=== PATIENT | male | born 1960 | race Caucasian/White ===

== ENCOUNTER 2019-12-25 09:27 | Outpatient (CLI) | payer OTHER, SELFPAY ==
--- NOTE | 2019-12-25 09:46 | XR_ITS ---
WS: [id number] LUMBAR SPINE TECHNIQUE: 3 views of the lumbar spine CLINICAL INFORMATION: LOW BACK PAIN COMPARISON: None. FINDINGS: Five yen-ink-xarkemn lumbar vertebral bodies. Mild lumbar curve convex left. Mild disc space narrowin g L4-L5 and L5-S1. Chronic anterior wedging at T10, T11, and T12. Aortic calcification. Moderate face t arthropathy L4-L5 and L5-S1. Aortic calcification. XR/XR lumbar spine 2-3V* [id number] IMPRESSION: 1. Mild lumbar curve convex left. 2. Mild disc space narrowing L4-L5 and L5-S1. 3. Chronic anterior wedging at T10, T11, T12.
--- NOTE | 2019-12-25 09:46 | XR_ITS ---
WS: [id number] SHOULDER RIGHT TECHNIQUE: 3 views of the right shoulder CLINICAL INFORMATION: R SHOULDER PAIN S/P SURGERY COMPARISON: None. FINDINGS: Mild degenerative arthritis at the AC joint. Mild subacromial narrowing. Normal glenohumeral joint. N ormal scapula and distal clavicle. IMPRESSION: 1. 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 2. Mild rotator cuff arthropathy
== END 2019-12-25 09:28 | disposition home or self-care (01) ==
PROVIDERS: Visit Provider Dermatology
DX: M54.5 Low back pain (principal); M19.011 Primary osteoarthritis, right shoulder; M48.54XA Collapsed vertebra, not elsewhere classified, thoracic region, initial encounter for fracture; X58.XXXA Exposure to other specified factors, initial encounter
CPT/HCPCS: 72100; 73030

== ENCOUNTER 2022-03-27 03:51 | Emergency (ER) | payer MEDICARE, MEDICAID, SELFPAY ==
[2022-03-27 03:55] VITALS: BP 202/78; PULSE 52; RESP 18; TEMP 36.1; O2SAT 94; BMI 33.5
--- NOTE | 2022-03-27 04:01 | CTR_ITS ---
PROCEDURE INFORMATION: Exam: CT Abdomen And Pelvis Without Contrast Exam date and time: 03/27/2022 4:42 AM Age: 61 years old Clinical indication: Nausea and vomiting; Abdominal pain; Patient HX: Left flank pain with n/v. ; Additional info: Abd pain TECHNIQUE: Imaging protocol: Computed tomography of the abdomen and pelvis without contrast. Radiation optimization: All CT scans at this facility use at least one of these dose optimization techniques: automated exposure control; mA and/or kV adjustment per patient size (includes targeted exams where dose is matched to clinical indication); or iterative reconstruction. Other protocol: This patient has received 0 known CTs and 0 known cardiac nuclear medicine studies in the 12 months prior to the current study. COMPARISON: CR XR lumbar spine 2-3V* [id number] 12/25/2019 9:52 AM RADIATION DOSE METRICS: Total DLP (mGy-cm): 988.73 FINDINGS: Lungs: Mild interstitial pulmonary edema. Pleural spaces: Small bilateral pleural effusions. Liver: Normal. No mass. Gallbladder and bile ducts: Normal. No calcified stones. No ductal dilation. Pancreas: Normal. No ductal dilation. Spleen: Normal. No splenomegaly. Adrenal glands: Normal. No mass. Kidneys and ureters: Bilateral nonobstructing renal calculi measuring up to 5 mm on the right and 1.2 cm on the left. There is also a 9 mm calculus at the right UPJ without hydronephrosis. Mild left hydroureteronephrosis secondary to a 5 mm calculus in the distal left ureter. Stomach and bowel: Duodenal diverticulum. No bowel obstruction. Appendix: No evidence of appendicitis. Intraperitoneal space: Unremarkable. No free air. No significant fluid collection. Vasculature: Unremarkable. No abdominal aortic aneurysm. Lymph nodes: Unremarkable. No enlarged lymph nodes. Urinary bladder: Unremarkable as visualized. Reproductive: Prostatomegaly. Bones/joints: Unremarkable. No acute fracture. Soft tissues: Unremarkable. CT/CT kidney stone [id number] IMPRESSION: 1. Mild left hydroureteronephrosis secondary to a 5 mm calculus in the distal left ureter. 2. There is also a 9 mm calculus at the right UPJ without hydronephrosis. 3. Additional nonobstructing calculi are seen bilaterally. 4. Mild interstitial pulmonary edema with small bilateral pleural effusions.
[2022-03-27 04:07] VITALS: BP 220/83; PULSE 50; O2SAT 98
--- NOTE | 2022-03-27 04:08 | ED_ITS ---
HPI - Abdominal Pain General: Chief Complaint: Abdominal Pain Stated Complaint: possible kidney stone Time Seen by Provider: 03/27/22 03:56 Source: patient Mode of arrival: ambulatory Limitations: no limitations History of Present Illness: 61-year-old male who has history of kidney stones in the past he states that he started having severe left-sided flank pain that started suddenly at midnight. He states that pain is sharp in nature and is currently at 10. He denies any fever denies any worsening or improving factors. He denies any vomiting. He has had nausea. Associated Symptoms: Denies chills, diarrhea, dysuria, fever(s), nausea and vomiting Review of Systems Const: Denies: fever(s), chills, body aches or change in appetite Eyes: Denies: blurry vision or eye discomfort ENMT: Denies: throat pain or dental pain Card: Denies: chest pain Resp: Denies: dyspnea GI: Denies: abdominal pain, nausea, vomiting or diarrhea : Denies: dysuria Musc: Denies: neck pain or back pain Skin/Breast: Denies: rash Neuro: Denies: headache(s) Psych: Denies: depression Ruddy/Lymph: Denies: easy bruising All/Imm: Denies: urticaria PFSH ED PFSH: Medical History (Updated 03/27/22 @ 05:34 by Ed Trent MD) No pertinent past medical history Social History (Updated 03/27/22 @ 04:10 by Ed Trent MD) Substance/Drug Use: never Physical Exam Const: COMMON NORMALS: no acute distress, patient oriented x3 and healthy appearing HENMT: COMMON NORMALS: normocephalic and atraumatic HEAD & SCALP: normocephalic and atraumatic Eye: COMMON NORMALS: Equal, round and reactive pupils present and EOMs intact bilaterally PUPIL: Yes Equal, round and reactive pupils present Neck/C-Spine: COMMON NORMALS: full ROM and supple Chest: COMMONS NORMALS: normal inspection of the chest and normal palpation of entire chest wall Resp: COMMON NORMALS: normal respiratory effort, No retractions, No use of accessory muscles and clear to auscultation bilaterally AUSCULTATION: clear to auscultation bilaterally Cardio: COMMON NORMALS: regular rate, regular rhythm and No murmurs present (Cardio) RATE: regular rate RHYTHM: regular rhythm GI: COMMON NORMALS: Normal to inspection, nondistended, normoactive bowel sounds present, Soft to palpation, non-tender and no masses PALPATION: Yes Soft to palpation Extremity: COMMON NORMALS: normal to inspection and full ROM Neuro: COMMON NORMALS: patient oriented x3, moves all extremities and no focal motor deficits Psych: COMMON NORMALS: mental status grossly normal, Normal thought process present and cooperative THOUGHT PROCESS: Normal thought process present Skin: COMMON NORMALS: no rashes or lesions noted and no wounds GENERAL SKIN EXAM: no rashes or lesions noted Course Vital Signs: Vital signs: Vital Signs Temperature 97.0 F L 03/27/22 03:55 Pulse Rate 44 L 03/27/22 05:05 Respiratory Rate 16 03/27/22 05:05 Blood Pressure 190/75 03/27/22 05:27 Pulse Oximetry 95 03/27/22 05:05 Oxygen Delivery Me thod 03/27/22 05:05 MDM - Abdominal Pain Medical Decision Making Patient presents for flank pain from a kidney stone his pain has improved here no signs of UTI we will get him follow-up with [facility] prescribed pain meds he is to return if worsening he understands agrees to plan. Lab Data 03/27/22 04:20 03/27/22 04:20 Labs/Radiology: Radiology Impressions Abdomen/Pelvis CT 03/27/22 04:01 IMPRESSION: 1. Mild left hydroureteronephrosis secondary to a 5 mm calculus in the distal left ureter. 2. There is also a 9 mm calculus at the right UPJ without hydronephrosis. 3. Additional nonobstructing calculi are seen bilaterally. 4. Mild interstitial pulmonary edema with small bilateral pleural effusions. Laboratory Results WBC 11.7 10^3/uL (4.0-10.0) H 03/27/22 04:20 RBC 5.27 10^6/uL (4.1-5.3) 03/27/22 04:20 Hgb 14.5 g/dL (11.7-16.6) 03/27/22 04:20 Hct 46.4 % (42.0-52.0) 03/27/22 04:20 MCV 88.0 fl (80-94) 03/27/22 04:20 MCH 27.5 pg (28.0-34.0) L 03/27/22 04:20 MCHC 31.3 g/dL (30.0-36.0) 03/27/22 04:20 RDW 13.6 % (12.1-15.1) 03/27/22 04:20 Plt Count 168 10^3/cmm (130-400) 03/27/22 04:20 MPV 12.8 fL (7.4-10.4) H 03/27/22 04:20 Neut % (Auto) 78.6 % 03/27/22 04:20 Lymph % (Auto) 13.3 % 03/27/22 04:20 [place] % (Auto) 5.8 % 03/27/22 04:20 Eos % (Auto) 1.1 % 03/27/22 04:20 Baso % (Auto) 0.9 % 03/27/22 04:20 Neut # (Auto) 9.17 10^3/uL (1.8-7.7) H 03/27/22 04:20 Lymph # (Auto) 1.6 10^3/uL (0.8-4.8) 03/27/22 04:20 [place] # (Auto) 0.7 10^3/uL (0.2-0.9) 03/27/22 04:20 Eos # (Auto) 0.1 10^3/uL (0.0-0.8) 03/27/22 04:20 Baso # (Auto) 0.1 10^3/uL (0.0-0.1) 03/27/22 04:20 Nucleated RBC % (auto) 0 % 03/27/22 04:20 Nucleated RBCs # 0.0 /100WBC 03/27/22 04:20 Sodium 143 mmol/L (136-145) 03/27/22 04:20 Potassium 3.9 mmol/L (3.5-5.1) 03/27/22 04:20 Chloride 103 mmol/L (98-107) 03/27/22 04:20 Carbon Dioxide 30 mmol/L (22-29) H 03/27/22 04:20 Anion Gap 13.9 (5-19) 03/27/22 04:20 BUN 18 mg/dL (6-20) 03/27/22 04:20 Creatinine 1.0 mg/dL (0.7-1.2) 03/27/22 04:20 GFR Calculation 76.5 mL/min (90-130) L 03/27/22 04:20 Glucose 201 mg/dL (65-115) H 03/27/22 04:20 Calculated Osmolality 304 mOsm/kg (285-295) H 03/27/22 04:20 Calcium 9.6 mg/dL (8.5-10.5) 03/27/22 04:20 Total Bilirubin 1.6 mg/dL (0.15-1.2) H 03/27/22 04:20 AST 20 U/L (0-40) 03/27/22 04:20 ALT 14 U/L (0-41) 03/27/22 04:20 Alkaline Phosphatase 101 U/L (40-130) 03/27/22 04:20 Total Protein 7.1 g/dL (6.6-8.7) 03/27/22 04:20 Albumin 4.1 g/dL (3.5-5.2) 03/27/22 04:20 Globulin 3.0 g/dL (1.3-4.6) 03/27/22 04:20 Lipase 41 U/L (13-60) 03/27/22 04:20 Urine Color Yellow (Yellow) 03/27/22 05:07 Urine Appearance Clear (CLEAR) 03/27/22 05:07 Urine pH 6 (5-7) 03/27/22 05:07 Ur Specific [place] 1.020 (1.005-1.030) 03/27/22 05:07 Urine Protein 1+ (Negative) H 03/27/22 05:07 Urine Glucose (UA) Trace (Normal) H 03/27/22 05:07 Urine Ketones 1+ (Negative) H 03/27/22 05:07 Urine Blood 3+ (Negative) H 03/27/22 05:07 Urine Nitrate Negative (Negative) 03/27/22 05:07 Urine Bilirubin Neg (Negative) 03/27/22 05:07 Urine Urobilinogen 1 mg/dL (Negative) H 03/27/22 05:07 Ur Leukocyte Esterase Negative (Negative) 03/27/22 05:07 Urine RBC >100 /hpf (0-2) H 03/27/22 05:07 Urine WBC 5-10 /hpf (0-5) H 03/27/22 05:07 Ur Squamous Epith Cells 0-4 /hpf (0-5) H 03/27/22 05:07 Amorphous Sediment Not Reportable 03/27/22 05:07 Urine Bacteria Trace /hpf (NONE) 03/27/22 05:07 Urine Mucus 2+ /hpf 03/27/22 05:07 Discharge Plan Discharge Patient Disposition: Home Clinical Impression: Kidney stone Prescriptions: New hydrocodone-acetaminophen 5-325 mg tablet 1 tab PO Q6H PRN (Reason: pain) Qty: 14 0RF ondansetron 4 mg tablet,disintegrating 4 mg PO Q6H PRN (Reason: nausea and vomiting) Qty: 14 0RF Flomax 0.4 mg capsule 0.4 mg PO DAILY Qty: 5 0RF No Action lisinopril 20 mg tablet 20 mg PO BID Qty: 60 0RF Rx Instructions: Patient needs appt for further refills potassium chloride 20 mEq tablet,ER particles/crystals See Rx Instructions .ROUTE .COMPLEX Qty: 30 0RF Dose Instruction: TAKE 1 TABLET BY MOUTH DAILY Rx Instructions: TAKE 1 TABLET BY MOUTH DAILY Discharge Orders: Discharge ED (Routine); Ordered 03/27/22 Ordered By: Ed Trent Referrals: Michael Peña MD [Physician] - 1-3 days Discharge Diet: Advance as tolerated Discharge Activity: Resume usual activity Patient Instructions: Kidney Stones (ED), Opioid Safety Coding Level of Care Code ED [employer] 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
[2022-03-27] MEDS: sodium chloride 0.9% 1,000 ML 999 ML IV (04:19)
[2022-03-27 04:25] VITALS: RESP 16
[2022-03-27] MEDS: ondansetron 2 mg/ML SDV 2 mL 4 MG IVP (04:25)
[2022-03-27] MEDS: HYDROmorphone 1 mg/mL INJ 1 mL IVP (04:25)
[2022-03-27 04:28] LABS: Basophils # 0.1 10^3/uL (0.0-0.1); Basophils % 0.9 %; Eosinophils # 0.1 10^3/uL (0.0-0.8); Eosinophils % 1.1 %; Hematocrit 46.4 % (42.0-52.0); Hemoglobin 14.5 g/dL (11.7-16.6); Lymphocytes # 1.6 10^3/uL (0.8-4.8); Lymphocytes % 13.3 %; Mean Corpuscular HGB Conc 31.3 g/dL (30.0-36.0); Mean Corpuscular Hemoglobin 27.5 pg (28.0-34.0); Mean Platelet Volume 12.8 fL (7.4-10.4); Monocytes # 0.7 10^3/uL (0.2-0.9); Monocytes % 5.8 %; Neutrophils # 9.17 10^3/uL (1.8-7.7); Neutrophils % 78.6 %; Nucleated Red Blood Cells % 0 %; Platelet Count 168 10^3/cmm (130-400); Red Blood Count 5.27 10^6/uL (4.1-5.3); Red Cell Distribution Width 13.6 % (12.1-15.1); White Blood Count 11.7 10^3/uL (4.0-10.0)
[2022-03-27 04:50] LABS: Alanine Aminotransferase 14 U/L (0-41); Albumin Level 4.1 g/dL (3.5-5.2); Alkaline Phosphatase 101 U/L (40-130); Anion Gap 13.9 (5-19); Aspartate Amino Transferase 20 U/L (0-40); Blood Urea Nitrogen 18 mg/dL (6-20); Calcium 9.6 mg/dL (8.5-10.5); Carbon Dioxide 30 mmol/L (22-29); Chloride 103 mmol/L (98-107); Glomerular Filtration Rate 76.5 mL/min (90-130); Glucose 201 mg/dL (65-115); Lipase 41 U/L (13-60); Osmolality Calculated 304 mOsm/kg (285-295); Potassium 3.9 mmol/L (3.5-5.1); Sodium 143 mmol/L (136-145); Total Bilirubin 1.6 mg/dL (0.15-1.2); Total Protein 7.1 g/dL (6.6-8.7)
[2022-03-27 05:05] VITALS: BP 214/85; PULSE 44; RESP 16; O2SAT 95
[2022-03-27] MEDS: hyDRALAzine 20 mg/mL INJ 1 mL 10 MG IVP (05:07)
[2022-03-27 05:25] LABS: Add Urine Microscopic? YES; Bilirubin Urine Neg (Negative); Blood Urine 3+ (Negative); Glucose Urine UA Trace (Normal); Ketones Urine 1+ (Negative); Leukocyte Esterase Urine Negative (Negative); Nitrate Urine Negative (Negative); Protein Urine 1+ (Negative); Urine Appearance Clear (CLEAR); Urine Color Yellow (Yellow); Urobilinogen Urine 1 mg/dL (Negative); pH Urine 6 (5-7)
[2022-03-27 05:26] LABS: Add Urine Culture? Yes; Bacteria Urine TRACE /hpf; Mucus Urine 2+ /hpf; RBC Urine >100 /hpf (0-2); Squamous Epithelial Cell Urine 0-4 /hpf (0-5)
[2022-03-27 05:27] VITALS: BP 190/75
[2022-03-27] MEDS: ketorolac 30 mg/mL INJ 15 MG IVP (05:30)
[2022-03-27] MEDS: HYDROcodone-acetaminophen 5-325 mg Tablet 1 TAB PO (05:30)
[2022-03-27 05:47] VITALS: BP 183/70; PULSE 54; RESP 16; O2SAT 97
--- NOTE | 2022-03-27 11:12 | DCPLANNER ---
Addendum entered by Lani Paula 03/30/22 14:44: drilling engineering manager received the following message from the urology clinic regarding follow up appointment: Pt. does not want appt.-Pt. passed the stone this am. Original Note: drilling engineering manager had message to schedule a follow up appointment for patient with urology. drilling engineering manager sent patients information to the front office staff at urology. Patients information will be printed and reviewed. Clinic will call patient with appointment information.
== END 2022-03-27 05:55 | disposition home or self-care (01) ==
PROVIDERS: Emergency Provider Emergency Medicine
DX: N13.2 Hydronephrosis with renal and ureteral calculous obstruction (principal)
CPT/HCPCS: 74176; 80053; 81001; 83690; 85025; 87086; 96374; 96375; 99285; J0360; J1170; J1885; J2405; J7030